=== PATIENT | male | born 1965 | race Caucasian/White ===

== ENCOUNTER 2018-03-16 20:01 | Emergency (ER) | payer OTHER ==
[~2018-03-16] VITALS: Ht 170.2 cm; Wt 76.8 kg
[~2018-03-16 20:01] MED LIST: ADVIL200 MG PO; ASPIR 8181 M1 PO; ASPIRIN325 MG PO; CITALOPRAM HBR10 MG PO; DAILY VITE1 EAC1 PO; FAMOTIDINE20 MG PO; MAALOX ADVANCE1 EACH PO; NEOSPORIN ANT70.8 GM TP; PRAVASTATIN SOD40 MG PO; TUMS500 MG PO; vitamin d PO
[2018-03-16 20:49] LABS: HEMATOCRIT 43.4 % (38.0-50.0); HEMOGLOBIN 14.8 G/DL (12.5-16.6); MCH 29.3 PG (29.0-34.0); MCHC 34.1 G/DL (30.0-36.0); MCV 85.9 FL (86-99); PLATELET COUNT 204 K/uL (156-360); RBC DIS.WIDTH-CV 12.2 % (11.8-14.6); RBC DIS.WIDTH-SD 38.7 % (39-53); RED BLOOD COUNT 5.05 M/uL (4.00-5.50); WHITE BLOOD COUNT 6.5 K/uL (4.1-10.2)
[2018-03-16 21:04] LABS: CHLORIDE 104 mEq/L (99-109); POTASSIUM 4.1 mEq/L (3.7-5.4); SODIUM 140 mEq/L (136-147)
[2018-03-16 21:06] LABS: GLUCOSE 99 mg/dL (70-99)
[2018-03-16 21:10] LABS: CREATININE 1.1 mg/dL (0.6-1.3); GFR ESTIMATE (CALCULATED) > 59 mL/min/ (58.99-99999)
[2018-03-16 21:11] LABS: UREA NITROGEN (BUN) 15 mg/dL (9-23)
[2018-03-16] MEDS ORDERED: MECLIZINE HCL25 MG PO (21:14)
[2018-03-16 22:12] VITALS: BP 133/89
== END 2018-03-16 22:20 | disposition home or self-care (01) ==
LOC: EME 20:01
PROVIDERS: Emergency Medicine
DX: H81.10 Benign paroxysmal vertigo, unspecified ear (principal); I49.3 Ventricular premature depolarization; I49.1 Atrial premature depolarization; R94.31 Abnormal electrocardiogram [ECG] [EKG]; I10 Essential (primary) hypertension; Z79.82 Long term (current) use of aspirin; Z86.73 Personal history of transient ischemic attack (TIA), and cerebral infarction without residual deficits
CPT/HCPCS: 71045; 80048; 85027; 93005; 99281; 99284